=== PATIENT | female | born 1985 | race Caucasian/White ===

== ENCOUNTER 2024-12-15 09:38 | Outpatient (CLI) | payer OTHER ==
[~2024-12-15 09:38] MED LIST: LABETALOL HCL100 MG PO; LOSARTAN-HCTZ1 EAC2 PO
== END 2024-12-15 09:46 | disposition home or self-care (01) ==
LOC: SONOGRAMA 09:38
PROVIDERS: ATTEND Pathology Anatomic Pathology
DX: D37.030 Neoplasm of uncertain behavior of the parotid salivary glands (principal); C05.1 Malignant neoplasm of soft palate